=== PATIENT | female | born 1975 | race Caucasian/White ===

== ENCOUNTER 2017-05-20 19:48 | Emergency (ER) | payer SELFPAY ==
--- NOTE | 2017-05-20 20:24 | ERNOTE ---
Date of Service: 05/20/17 Time Seen by Provider: 05/20/17 20:07 Stated Complaint: FLU Presenting Symptoms:: cough, sore throat, runny nose, fever Source: patient Exam Limitations: no limitations Immunizations: IMMUNIZATION HX Immunizations Up to Date Yes History of Influenza Vaccine Yes Allergies/Adverse Reactions: Allergies Penicillins Allergy (Verified 05/20/17 19:56) Home Medications: HOME MEDICATIONS Cefdinir [Omnicef] 300 mg PO Q12H #20 cap 05/20/17 [Last Taken Unknown] Neomy Sulf/Polymyx B Sulf/Hc [Cortisporin Otic] 5 drop EACH EAR QID #10 ml 05/20 [Last Taken Unknown] Venlafaxine HCl [Effexor] 75 mg PO 05/20/17 [Last Taken Unknown] buPROPion HCL [Wellbutrin] 100 mg PO 05/20/17 [Last Taken Unknown] - History of Present Ilness Narrative: Pt. comes in with c/o cough, fever, sinus congestion, rhinorrhea, sore throat, and ear pain for 24 hours. Pt. denies any NVD, CP, SOB, aggravating factors, alleviating factors, despite using dayquil for the symptoms. Review of Systems - Review of Systems Constitutional: Present: fever, chills, weakness, fatigue, malaise. Absent: recent illness EYE: Present: no symptoms reported ENT: Present: ear pain, nose congestion, nasal drainage, sore throat. Absent: ear discharge, throat swelling Respiratory: Present: cough. Absent: shortness of breath, orthopnea, wheezing Cardiology: Present: no symptoms reported. Absent: chest pain, palpitations, edema Gastrointestinal/Abdominal: Present: no symptoms reported. Absent: nausea, vomiting, diarrhea Genitourinary: Present: no symptoms reported Musculoskeletal: Present: no symptoms reported. Absent: back pain, joint pain Skin: Present: no symptoms reported. Absent: rash, change in hair/nails Neurological: Present: headache. Absent: dizziness/light-headedness, numbness, tingling All Other Systems: All systems neg except as marked - Patient's Past Medical History Patient History - Medical: Depression Patient History - Surgical Procedures: Cataracts, Hysterectomy, Tubal Ligation - Social History Living Situations: home Psych History: Hx of Depression Smoking Status: Never smoker - Immunizations Immunizations Up to Date: Yes History of Influenza Vaccine: Yes Physical Exam - Physical Exam General Appearance: Present: wd/wn, alert, no apparent distress Head Exam: Present: normal inspection, no evidence of injury Eye Exam: Normal inspection: bilateral Ears, Nose, Throat: Present: abnormal TM (R) - red with ruptured TM with serosanguinous drainage, abnormal TM (L) - erythema, sinus pain/drainage, pharyngeal erythema, pharyngeal swelling, tonsillar exudate - white Neck: Present: nontender, supple, full range of motion, lymphadenopathy (R) - post auricular and submandibular. Absent: lymphadenopathy (L) Respiratory: Present: no respiratory distress, normal breath sounds, no accessory muscle use, chest nontender, lungs clear Cardiovascular/Chest: Present: no murmur, normal peripheral pulses, tachycardia Gastrointestinal/Abdominal: Present: normal bowel sounds, nontender, nondistended, soft, no organomegaly Back Exam: Present: normal inspection, normal range of motion, no CVA tenderness , no vertebral tenderness Extremity Exam: Present: normal inspection, non-tender, normal range of motion, no edema Neurological Exam: Present: alert, oriented, normal mood/affect, no motor/ sensory deficits Skin Exam: Present: normal color, warm/dry. Absent: pallor, skin rash ED Progress - Results and Orders Patient's Lab Results:: I have reviewed the patient's lab results. Results and Orders: Laboratory Results - last 24 hr 05/20/17 05/20/17 20:05 20:40 Influenza Type A Ag Negative Influenza Type B Ag Negative Group A Strep Rapid Negative - Vital Signs Patient's Vital Signs:: I have reviewed the patient's vital signs. Vital Signs: Vital Signs 05/20/17 19:56 Temperature 36.8 C Pulse Rate 111 H Respiratory 18 Rate Blood Pressure 139/91 O2 Sat by Pulse 95 Oximetry - Progress/Reassessment Chief Complaint: Cough Departure Clinical Impression: Otitis media Qualifiers: Otitis media type: suppurative Chronicity: acute Laterality: bilateral Recurrence: recurrent Spontaneous tympanic membrane rupture: with spontaneous rupture Qualified Code(s): H66.016 - Acute suppurative otitis media with spontaneous rupture of ear drum, recurrent, bilateral Pharyngitis Qualifiers: Pharyngitis/tonsillitis etiology: unspecified etiology Qualified Code(s): J02.9 - Acute pharyngitis, unspecified - Departure Disposition: Home self-care Condition: Good Instructions: Pharyngitis, [id number], Otitis Media With Effusion, Tympanic Membrane Perforation-SportsMed Additional Instructions: Please follow up with primary provider in 2-3 days Referrals: JERSON GALINDO [Primary Care Provider] - Prescriptions: Cefdinir [Omnicef] 300 mg PO Q12H #20 cap Neomy Sulf/Polymyx B Sulf/Hc [Cortisporin Otic] 5 drop EACH EAR QID #10 ml
[2017-05-20 21:31] VITALS: BP 117/67
== END 2017-05-20 21:16 | disposition home or self-care (01) ==
LOC: ER 19:48
DX: H66.016 Acute suppurative otitis media with spontaneous rupture of ear drum, recurrent, bilateral (principal); J02.9 Acute pharyngitis, unspecified; F32.9 Major depressive disorder, single episode, unspecified